=== PATIENT | male | born 1955 | race Caucasian/White ===

== ENCOUNTER 2023-06-29 11:01 | Emergency (ER) | payer MEDICARE, SELFPAY ==
[2023-06-29 11:04] VITALS: BP 118/81; PULSE 59; RESP 14; TEMP 37.2; O2SAT 97
--- NOTE | 2023-06-29 11:37 | RAD_ITS ---
STUDY: X-RAY CHEST REASON FOR EXAM: Male, 68 years old. Dyspnea TECHNIQUE: Single AP portable view of the chest. COMPARISON: None. FINDINGS: The lungs are clear and expanded. There is no demonstrated pleural abnormality. Sternal cerclage wires and vascular clips are present from a prior sternotomy and coronary artery bypass graft procedure (CABG). Normal mediastinum and cally. Normal visualized pulmonary arteries. Normal visualized aortic arch and descending thoracic aorta. Normal visualized thoracic spine. Normal visualized ribs, clavicles, and shoulders. There is no demonstrated abnormality of the visualized soft tissue structures of the upper abdomen. RAD/Chest 1 View (Portable) IMPRESSION: Normal x-ray examination of the chest. Electronically Signed: Gerardo Peterson MD at 12:12 EST ,
--- NOTE | 2023-06-29 11:38 | EDS_ITS ---
HPI History of Present Illness Chief Complaint: Weakness Informant: patient and spouse/S.O. Narrative Narrative: 68-year-old male presents with 12 days of not feeling well. Patient has a history of COPD and coronary artery disease (status post CABG x 2). states that she was ill just before and her fever broke the Sunday after. On Sunday after the patient began to have increased sleep. She notes dry heaves decreased p.o. decreased urination with dark urine nasal congestion dyspnea with exertion. He states he occasionally feels his heart racing. He cannot tell me how long this lasts. He denies any pain in the chest. He denies a history of atrial fibrillation. notes a Tmax of 100.6 axillary last night. She states she cannot seem to get an oral thermometer work as he is mouth breathing. He does have a history of obstructive sleep apnea and wears CPAP. No reported diarrhea. No reported rashes. No neck pain. She states that he refused to go to urgent care or the ED last week when she prompted him to. Today she was able to convince him to go to [facility] where they evaluated him and sent him to the emergency room. states that according to the scale at the [facility] he is lost 25 pounds in 12 days. Today it was noted that he was confused. [facility] Medical History (Updated 06/29/23 @ 15:[address] Lucho Najera DO) COPD (chronic obstructive pulmonary disease) Coronary artery disease Home Medications potassium chloride 20 mEq tablet,extended release 40 meq (2 x 20 mEq) PO DAILY 5 days #10 tabs 06/29/23 [Rx Last Taken Unknown] Allergy/AdvReac Type Severity Reaction Status Date / Time No Known Allergies Allergy Verified 06/29/23 11:03 Surgical History (Updated 06/29/23 @ 11:[address] Lucho Najera DO) S/P CABG x 2 Social History Smoking Status: Never smoker ROS ROS ED ROS Narrative Generalized fatigue and increased sleep Constitutional Constitutional ED: Reports chills, fever(s) and weight loss Eyes Eyes: Denies change in vision or diplopia ENT ENT ED: Reports other Details: Nasal congestion ; Denies ear pain, rhinorrhea or sore throat Cardiovascular Cardiovascular: Reports palpitations and racing heartbeat; Denies chest pain or orthopnea Respiratory/Chest Respiratory/Chest: Reports cough and dyspnea; Denies orthopnea Gastrointestinal Gastrointestinal: Reports nausea and other Details: Dry heaves ; Denies abdominal pain, diarrhea or vomiting Genitourinary Genitourinary ED: Reports other Details: Decreased urination dark urine ; Denies dysuria, hematuria or urinary frequency Musculoskeletal Musculoskeletal: Reports myalgias; Denies arthralgias, back pain or neck pain Integumentary Denies abscess or rash Neurologic Neurologic: Denies headache(s) or weakness Psychiatric Psychiatric: Denies anxiety, depression, suicidal ideation or suicidal thoughts Endocrine Endocrinology: Denies polydipsia, polyphagia or polyuria Allergic/Immunologic Allergic/Immunologic ED: Denies mouth swelling, tongue swelling or urticaria EXAM Physical Exam Const Vital Signs: 06/29/23 11:04 06/29/23 11:01 06/29/23 12:56 Temperature 99 F Temperature Source Temporal Pulse Rate 59 L 56 L Respiratory Rate 14 20 H Respiratory Pattern Normal Blood Pressure 118/81 H 122/77 H Blood Pressure Mean 93 92 Pulse Ox 97 Oxygen Delivery Method Room Air Room Air Oxygen Flow Rate (L/min) 93 06/29/23 14:45 Temperature Temperature Source Pulse Rate 56 L Respiratory Rate 22 H Respiratory Pattern Blood Pressure 117/67 Blood Pressure Mean 83 Pulse Ox Oxygen Delivery Method Room Air Oxygen Flow Rate (L/min) Positive well nourished and well developed General Appearance ED: well developed HEENT Reports normocephalic, head/scalp atraumatic and dry mucous membranes Mouth ED: Yes dry mucous membranes Mouth: dry mucous membranes Eyes PERRL and EOMs intact bilaterally Neck no lymphadenopathy, supple and no JVD Resp normal respiratory effort and clear to auscultation bilaterally Cardio regular rate, regular rhythm and no murmurs GI normal to inspection, nondistended, normoactive bowel sounds and non-tender Palpation: soft Back/Spine no CVA tenderness and normal ROM Extremity normal to inspection General Extremety ED: Negative for edema General Extremity: Negative for edema Neuro oriented x3 and CN's II-XII intact bilaterally Sensorium / Orientation: alert Motor Exam: strength 5/5 throughout Psych mental status grossly normal Mood & Affect: Negative for depressed or tearful Skin no rashes or lesions noted and no wounds MDM MDM MDM Narrative Medical decision making narrative: My independent interpretation of the chest x-ray is no acute process. IV established the patient received 3 L of normal saline. His potassium returns low at 2.8 with a creatinine 1.45 and a BUN of 27. Lactic acid normal at 1.5. Troponin is 28 lipase 21. LFTs essentially negative direct bilirubin 0.34. White count 6.7 with a hemoglobin 16.3. Patient received IV potassium as well as oral potassium. Repeat examination shows that the patient is feeling substantially better. He has been able to urinate. notices a difference and the patient is not having any confusion. Will replace his potassium in the next several days. He states that he will drink plenty of fluids. I have asked that he follow-up with his primary care doctor within the week. History & Record Review Discussion w/independent historian: Patient and Significant other Lab Data Attestation: I reviewed the patient's lab results. Labs: Laboratory Results - last 24 hr 06/29/23 12:10 WBC 6.7 RBC 4.68 Hgb 16.3 Hct 45.4 MCV 97.0 H MCH 34.8 H MCHC 35.9 RDW Std Deviation 41.9 RDW Coeff of Wendy 11.8 Plt Count 212 MPV 9.9 Immature Gran % (Auto) 1.000 H Neut % (Auto) 65.2 Lymph % (Auto) 20.7 [place] % (Auto) 12.8 H Eos % (Auto) 0.0 Baso % (Auto) 0.3 Absolute Neuts (auto) 4.4 Absolute Lymphs (auto) 1.39 Nucleated RBC % 0 Differential Comment SCANNED Atypical Lymphocytes 1+ Reactive Lymphocytes 1+ PT 13.6 INR 1.0 APTT 32.1 D-Dimer Quant (PE/DVT) < 0.27 L Sodium 132 L Potassium 2.8 L Chloride 95 L Carbon Dioxide 29.0 Anion Gap 8 BUN 27 H Creatinine 1.45 H Estim Creat Clear Calc 59.09 Est GFR (MDRD) Af Amer 62 Est GFR (MDRD) Non-Af 52 L BUN/Creatinine Ratio 18.6 Glucose 144 H Lactic Acid 1.5 Calcium 8.6 Total Bilirubin 1.00 Direct Bilirubin 0.34 H AST 34 ALT 36 Alkaline Phosphatase 84 Troponin I High Sens 28 Total Protein 7.6 Albumin 3.1 L Globulin 4.5 H Lipase 21 Radiography Diagnostic Testing: Clinical Impression(s) from Imaging Studies Chest X-Ray 06/29/23 11:37 IMPRESSION: Normal x-ray examination of the chest. Electronically Signed: Gerardo Peterson MD at 12:12 EST , EKG Initial EKG: Attestation: I personally reviewed and interpreted this EKG as follows: Comments: Sinus bradycardia with nonspecific intraventricular delay. PVCs noted. Prior EKG tracings: not available for review Discharge Plan Triage Chief Complaint: Weakness ED Provider: Lucho Najera Dx/Rx/DC Orders Clinical Impression: Acute dehydration, COVID-19, Acute hypokalemia Instructions: ED Dehydration (Adult), ED Hypokalemia Prescriptions: New potassium chloride 20 mEq tablet extended release 40 meq PO DAILY 5 Days Qty: 10 0RF Primary Care Provider: Adonis Simpson Referrals: Adonis Simpson DO [Primary Care Provider] - 1 Week Disposition Disposition: Home, Self Care
--- NOTE | 2023-06-29 11:40 | NURSING ---
NO OLD EKGS
[2023-06-29 12:20] VITALS: BMI 31.7
[2023-06-29 12:31] LABS: Absolute Lymphocyte Count 1.39 X10^3/uL (0.83-4.51); Absolute Neutrophil Count 4.4 X10^3/uL (2.0-7.7); Basophil# 0.02 X10^3/uL; Basophil% 0.3 % (0-1); Hematocrit 45.4 % (40-54); Hemoglobin 16.3 g/dL (13.0-16.5); Lymphocyte # 1.39 X10^3/ul (0.83-4.51); Lymphocyte % 20.7 % (19-41); Mean Corp Hgb Conc 35.9 g/dL (32-36); Mean Corpuscular Hgb 34.8 pg (27.0-32.0); Mean Platelet Vol. 9.9 fl (6.2-12.0); Monocyte# 0.86 X10^3/uL; Monocyte% 12.8 % (0-10); NRBC Flagged by Analyzer 0 % (0-5); Neutrophil # 4.36 X10^3/uL (2.7-7.7); Neutrophil % 65.2 % (47-70); POSITIVE MORPHOLOGY YES; Platelet Count 212 K/mm3 (150-450); RBC Distribution Width CV 11.8 % (11.6-14.6); RBC Distribution Width SD 41.9 fl (35.1-43.9); Red Blood Count 4.68 M/mm3 (4.6-6.2); White Blood Count 6.7 K/mm3 (4.4-11.0)
[2023-06-29 12:33] LABS: Differential Indicated SCAN CRITERIA MET
[2023-06-29] MEDS: Ondansetron 4 MG/2 ML Vial IV (12:37)
[2023-06-29] MEDS: 0.9% Normal Saline (1000mL) 1,000 ML 1000 ML IV ×2 (12:37→12:38)
[2023-06-29 12:48] LABS: AST(SGOT) 34 U/L (15-37); Alanine Aminotransfer ALT/SGPT 36 U/L (16-61); Albumin, Serum 3.1 g/dL (3.2-5.0); Alkaline Phosphatase 84 U/L (45-117); Anion Gap 8 (5-15); BUN 27 mg/dL (7-18); BUN/Creat Ratio 18.6 RATIO (10-20); Bilirubin, Direct 0.34 mg/dL (0.00-0.30); Calcium,Total 8.6 mg/dL (8.5-10.1); Chloride 95 mmol/L (98-107); Creatinine, Serum 1.45 mg/dL (0.70-1.30); EST Glomerular Filtration Rate 52 mL/min (>60); Est Glom Filt Rate - Afr Amer 62 mL/min (>60); Estimated Creatinine Clearance 59.09 ml/min; Globulin 4.5 g/dL (2.2-4.2); Glucose 144 mg/dL (74-106); Lipase 21 U/L (13-75); Potassium 2.8 mmol/L (3.5-5.1); Protein, Total 7.6 g/dL (6.4-8.2); Prothrombin Time (Protime)PT. 13.6 SECONDS (11.7-14.9); Sodium Level 132 mmol/L (136-145); Troponin-I HS 28 pg/mL (3.0-78.0)
[2023-06-29 12:49] LABS: Partial Thromboplast Time 32.1 Seconds (24.1-36.2)
[2023-06-29 12:51] LABS: Lactic Acid 1.5 mmol/L (0.4-1.9)
[2023-06-29 12:53] LABS: D-Dimer Quantitative (DVT/PE) < 0.27 FEU/ug/m (0.27-0.49)
[2023-06-29 12:56] VITALS: BP 122/77; PULSE 56; RESP 20
[2023-06-29 13:03] LABS: Atypical Lymphocyte 1+ %; Differential Comment SCANNED; Reactive Lymphocyte 1+
[2023-06-29] MEDS: Potassium Chloride Oral Tablet 20 MEQ 40 MEQ PO (13:32)
[2023-06-29] MEDS: 0.9% Normal Saline (1000mL) 1,000 ML 999 ML IV ×2 (13:34→15:31)
[2023-06-29] MEDS: Potassium Chloride 10mEq/100mL 10 MEQ/100 ML IV.SOLN. 100 MEQ IV BOLUS (14:26)
[2023-06-29 14:45] VITALS: BP 117/67; PULSE 56; RESP 22
[2023-06-29 16:54] VITALS: BP 117/68; PULSE 58; RESP 18; O2SAT 98
== END 2023-06-29 16:56 | disposition home or self-care (01) ==
PROVIDERS: Emergency Provider Emergency Medicine; PCP Student in an Organized Health Care Education/Training Program; Visit Provider Emergency Medicine
DX: R53.1 Weakness (principal); J44.9 Chronic obstructive pulmonary disease, unspecified; U07.1 COVID-19; E87.6 Hypokalemia; E86.0 Dehydration; I25.10 Atherosclerotic heart disease of native coronary artery without angina pectoris; Z95.1 Presence of aortocoronary bypass graft; Z99.89 Dependence on other enabling machines and devices
CPT/HCPCS: 71045; 80048; 80076; 83605; 83690; 84484; 85025; 85379; 85610; 85730; 87040; 87086; 87635; 93005; 96361; 96374; 99283; J7030; A4216; J2405